=== PATIENT | male | born 1965 ===

== ENCOUNTER 2020-08-30 12:17 | Emergency (ER) | payer BC ==
--- NOTE | 2020-08-30 12:47 | EDM.PDOC ---
ED HPI GENERAL MEDICAL PROBLEM - General Chief Complaint: Lower Extremity Injury/Pain Stated Complaint: RIGHT LEG PAIN Time Seen by Provider: 08/30/20 12:45 Source of Information: Reports: Patient History Limitations: Reports: No Limitations - History of Present Illness INITIAL COMMENTS - FREE TEXT/NARRATIVE: pt hit the mid portion of the rt lower leg anterior. There was swelling and it was very tender, Onset: Today, Sudden Duration: Hour(s): Location: Reports: Lower Extremity, Right Associated Symptoms: Reports: No Other Symptoms Right Anterior Leg Pain Score (Numeric/FACES): 2 - Related Data Allergies Allergy/AdvReac Type Severity Reaction Status Date / Time No Known Allergies Allergy Verified 08/30/20 12:37 Home Meds: Home Meds ALPRAZolam [Xanax] 0.25 mg PO BID 08/30/20 [History] Metoprolol Succinate 25 mg PO DAILY 08/30/20 [History] Omeprazole Magnesium [Prilosec Otc] 20 mg PO DAILY 08/30/20 [History] Sertraline [Zoloft] 50 mg PO DAILY 08/30/20 [History] Review of Systems - Review of Systems Review Of Systems: See Below Constitutional: Reports: No Symptoms Ears: Reports: No Symptoms Nose: Reports: No Symptoms Mouth/Throat: Reports: No Symptoms Respiratory: Reports: No Symptoms Cardiovascular: Reports: No Symptoms Musculoskeletal: Reports: No Symptoms, Other ( front ot rtr lower leg) ED EXAM, GENERAL - Physical Exam Exam: See Below Free Text/Narrative:: pt arrived after a blow to the lower leg. There was swelling present. Exam Limited By: No Limitations General Appearance: Alert Extremities: Other ( there is swellingon the anterior portion of the rt lower leg after a blow on a dresser. The skin is open slightly. He is curret with his tetanus. ) Course - Vital Signs Last Recorded V/S: Last Vital Signs Temp 36.8 C 08/30/20 12:37 Pulse 87 08/30/20 12:37 Resp 16 08/30/20 12:37 BP 122/79 08/30/20 12:57 Pulse Ox 95 08/30/20 12:37 - Orders/Labs/Meds Orders: Active Orders 24 hr Category Date Time Status Tibia Fibula Rt [CR] Stat Exams 08/30/20 12:44 Taken Bacitracin [Bacitracin Oint 1 GM] Med 08/30/20 13:17 Once 1 dose TOP ONETIME ONE Medication Orders Bacitracin (Bacitracin Oint 1 Gm) 1 dose TOP ONETIME ONE Stop: 08/30/20 13:18 Meds: Medications Generic Name Dose Route Start Last Admin Trade Name Tabitha PRN Reason Stop Dose Admin Bacitracin 1 dose 08/30/20 13:17 Bacitracin Oint 1 Gm TOP 08/30/20 13:18 ONETIME ONE - Re-Assessments/Exams Free Text/Narrative Re-Assessment/Exam: 08/30/20 13:19 xray was obtained of the tib-fib area with no fractures seen. Departure - Departure Time of Disposition: 13:19 Disposition: Home, Self-Care 01 Condition: Fair Clinical Impression: Contusion of lower leg, right - Discharge Information Referrals: PCP,None [Primary Care Provider] - Forms: ED Department Discharge Care Plan Goals: dress with antibiotic ointment and cool pack for swelling. Sepsis Event Note (ED) - Focused Exam Vital Signs: Vital Signs Temp Pulse Resp BP Pulse Ox 08/30/20 12:57 122/79 08/30/20 12:37 36.8 C 87 16 122/79 95 - My Orders Last 24 Hours: My Active Orders 08/30/20 12:44 Tibia Fibula Rt [CR] Stat 08/30/20 13:17 Bacitracin [Bacitracin Oint 1 GM] 1 dose TOP ONETIME ONE - Assessment/Plan Last 24 Hours: My Active Orders 08/30/20 12:44 Tibia Fibula Rt [CR] Stat 08/30/20 13:17 Bacitracin [Bacitracin Oint 1 GM] 1 dose TOP ONETIME ONE
[2020-08-30] MEDS ORDERED: Bacitracin Oint 1 GM U/D Packet TOP ONE (13:17)
--- NOTE | 2020-09-02 10:25 | CR ---
Tibia Fibula Rt CLINICAL HISTORY: Injury FINDINGS: Two views show no evidence of fracture or bone destruction. There is some soft tissue swelling on the upper anterior frankel. Impression: No fracture Soft tissue swelling
== END 2020-08-30 13:28 | disposition home or self-care (01) ==
LOC: JP.ED 12:17
DX: S80.11XA Contusion of right lower leg, initial encounter (principal); W22.8XXA Striking against or struck by other objects, initial encounter
CPT/HCPCS: 73590-26-RT; 73590-RT; 99283-25